=== PATIENT | male | born 1990 | race American Indian/Alaskan Native ===

== ENCOUNTER 2016-11-11 15:42 | Emergency (ER) | payer SELFPAY ==
[2016-11-11 15:45] VITALS: BMI 26.4
[2016-11-11 15:49] VITALS: BP 153/84; TEMP 98
--- NOTE | 2016-11-11 16:01 | ED PDOC ---
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 aching pain, stiffness, painful to turn, no fever or chills, no headache, no dizziness, no change in vision, no night sweat, no palpitation, no numbness or tingling, no pain medication taken at home, no other medical or psychological complaints. Past Medical History - Provider Review Nursing Documentation Reviewed: Yes - Infectious Disease Hx of Infectious Diseases: None - Tetanus Immunization Tetanus Immunization: Unknown - Past Medical History Past Medical History: No Previous - Psychiatric Hx Depression: No Hx Emotional Abuse: No Hx Physical Abuse: No Hx Substance Use: No - Past Surgical History Past Surgical History: No Previous - Anesthesia Hx Anesthesia: No - Suicidal Assessment Feels Threatened In Home Enviroment: No Family/Social History - Physician Review Nursing Documentation Reviewed: Yes Family/Social History: Unknown Family HX Smoking Status: Never Smoked Hx Alcohol Use: Yes Frequency of alcohol use: Socially Hx Substance Use: No Allergies/Home Meds Allergies/Adverse Reactions: Allergies No Known Allergies Allergy (Verified 11/11/16 15:45) Review of Systems - Review of Systems Constitutional: absent: Fatigue, Fevers Eyes: absent: Vision Changes ENT: absent: Hearing Changes Respiratory: absent: SOB, Cough Cardiovascular: absent: Chest Pain Gastrointestinal: absent: Abdominal Pain, Nausea, Vomiting Musculoskeletal: Neck Pain, Myalgias. absent: Arthralgias, Back Pain, Joint Swelling Skin: absent: Rash, Pruritis Neurological: absent: Headache, Dizziness, Focal Weakness, Speech Changes, Facial Droop Physical Exam Vital Signs Reviewed: Yes Vital Signs Temp Pulse Resp BP Pulse Ox 11/11/16 15:47 98.0 F 72 19 153/84 H 100 Temperature: Afebrile Blood Pressure: Hypertensive Pulse: Regular Respiratory Rate: Normal Appearance: Positive for: Well-Appearing, Non-Toxic Pain Distress: Moderate Mental Status: Positive for: Alert and Oriented X 3 - Systems Exam Head: Present: Atraumatic, Normocephalic. No: Tenderness, Contusion, Swelling, Ecchymosis, Abrasion, Laceration, Other Pupils: Present: PERRL Extroacular Muscles: Present: EOMI Conjunctiva: Present: Normal Mouth: Present: Moist Mucous Membranes Neck: Present: Normal Range of Motion, Paraspinal Tenderness, Other (+ttp and spasm noted on the bilateral trapezius, ). No: Meningeal Signs, MIDLINE TENDERNESS, Lymphadenopathy, Trachea Midline Respiratory/Chest: Present: Clear to Auscultation, Good Air Exchange. No: Respiratory Distress, Accessory Muscle Use Cardiovascular: Present: Regular Rate and Rhythm, Normal S1, S2. No: Murmurs Abdomen: Present: Normal Bowel Sounds. No: Tenderness, Distention, Peritoneal Signs Back: Present: Normal Inspection Upper Extremity: Present: Normal Inspection. No: Cyanosis, Edema Lower Extremity: Present: Normal Inspection. No: Edema Neurological: Present: GCS=15, CN II-XII Intact, Speech Normal, Motor Func Grossly Intact, Gait Normal, Memory Normal Skin: Present: Warm, Dry, Normal Color. No: Rashes Psychiatric: Present: Alert, Oriented x 3, Normal Insight, Normal Concentration Medical Decision Making ED Course and Treatment: 11/11/16 16:01 -CT cervical -toradol IM and valium 11/11/16 17:38 -Pain decreased, feeling much better, more relaxed on the neck -Discussed the CT spine in detail, advised outpatient neurosurgery or orthopedic follow up. -Discharge home with naproxen, flexeril, lidoderm patch, heat compression, follow up with your own pmd and neurosurgery/orthopedic within 2 days, return to the ER for any new or worsening signs or symptoms. - RAD Interpretation Radiology Orders: 11/11/16 15:58 CERVICAL SPINE W/O CONTRAST [CT] Stat PROCEDURE: CT Cervical Spine without contrast HISTORY: <neck pain x 1 month> COMPARISON: None available. TECHNIQUE: Axial computed tomography images were obtained of the cervical spine without the use of intravenous contrast. Coronal and sagittal reformatted images were created and reviewed. Radiation dose: Total exam DLP = 644.40 mGy-cm. This CT exam was performed using one or more of the following dose reduction techniques: Automated exposure control, adjustment of the mA and/or kV according to patient size, and/or use of iterative reconstruction technique. FINDINGS: VERTEBRAE: There is no fracture. There is mild levo scoliotic curvature of the cervical spine. The vertebral bodies are maintained in height. There is almost complete ankylosis of the body and posterior elements of the C2 and C3 vertebrae. This is likely developmental. There is no listhesis. The atlantoaxial articulation and odontoid process are intact. DISCS/SPINAL CANAL/NEURAL FORAMINA: Intervertebral disc spaces from C3-4 through C7-T1 are maintained in height. There is no evidence of disc bulge or disc herniation. PARASPINAL SOFT TISSUES: Unremarkable. OTHER FINDINGS: None. IMPRESSION: No evidence of fracture or dislocation. Mild cervical levoscoliosis. 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 [facility]: Radiologist - Medication Orders Current Medication Orders: Discontinued Medications Diazepam (Valium) 5 mg PO ONCE ONE PRN Reason: Protocol Stop: 11/11/16 15:59 Last Admin: 11/11/16 16:23 Dose: 5 mg Ketorolac Tromethamine (Toradol) 60 mg IM STAT STA Stop: 11/11/16 15:59 Last Admin: 11/11/16 16:23 Dose: 60 mg - PA / [employer] / Resident Statement / has reviewed & agrees with the documentation as recorded. Disposition/Present on Arrival - Present on Arrival Any Indicators Present on Arrival: No History of DVT/PE: No History of Uncontrolled Diabetes: No Urinary Catheter: No History of Decub. Ulcer: No History Surgical Site Infection Following: None - Disposition Have Diagnosis and Disposition been Completed?: Yes Diagnosis: Ankylosis, Neck muscle spasm, Scoliosis Disposition: HOME/ ROUTINE Disposition Time: 16:01 Patient Plan: Discharge Condition: IMPROVED Additional Instructions: Discharge home with naproxen, flexeril, lidoderm patch, heat compression, follow up with your own pmd and neurosurgery/orthopedic within 2 days, return to the ER for any new or worsening signs or symptoms. Prescriptions: Cyclobenzaprine [Cyclobenzaprine HCl] 10 mg PO TID PRN #21 tab PRN Reason: Other Lidocaine 5% [Lidoderm] 1 patch TOP DAILY PRN #14 patch PRN Reason: Other Naproxen 500 mg PO BID PRN #20 tab PRN Reason: Other Referrals: PCP,NO [Primary Care Provider] - Follow up with primary [facility] [place] - Follow up with primary Silvano Carmona MD [Staff Provider] - Follow up with primary Parminder Noe DO [Staff Provider] - Follow up with primary Forms: WORK NOTE
--- NOTE | 2016-11-11 17:22 | CT ---
PROCEDURE: CT Cervical Spine without contrast HISTORY: <neck pain x 1 month> COMPARISON: None available. TECHNIQUE: Axial computed tomography images were obtained of the cervical spine without the use of intravenous contrast. Coronal and sagittal reformatted images were created and reviewed. Radiation dose: Total exam DLP = 644.40 mGy-cm. This CT exam was performed using one or more of the following dose reduction techniques: Automated exposure control, adjustment of the mA and/or kV according to patient size, and/or use of iterative reconstruction technique. FINDINGS: VERTEBRAE: There is no fracture. There is mild levo scoliotic curvature of the cervical spine. The vertebral bodies are maintained in height. There is almost complete ankylosis of the body and posterior elements of the C2 and C3 vertebrae. This is likely developmental. There is no listhesis. The atlantoaxial articulation and odontoid process are intact. DISCS/SPINAL CANAL/NEURAL FORAMINA: Intervertebral disc spaces from C3-4 through C7-T1 are maintained in height. There is no evidence of disc bulge or disc herniation. PARASPINAL SOFT TISSUES: Unremarkable. OTHER FINDINGS: None. IMPRESSION: No evidence of fracture or dislocation. Mild cervical levoscoliosis. 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
[2016-11-11 17:49] VITALS: RESP 16
[2016-11-11 17:50] VITALS: PULSE 85; O2SAT 96
== END 2016-11-11 17:49 | disposition home or self-care (01) ==
LOC: ED 15:42
DX: M62.838 Other muscle spasm (principal); M41.82 Other forms of scoliosis, cervical region; M43.22 Fusion of spine, cervical region
CPT/HCPCS: 72125; 96372; 99284; J1885